=== PATIENT | female | born 1955 | race Caucasian/White ===

== ENCOUNTER 2021-07-26 01:26 | Day surgery (SDC) | payer MEDICARE, SELFPAY ==
[2021-07-12 08:58] VITALS: BMI 36.6
--- NOTE | 2021-07-26 07:45 | PM.HPGS ---
History of Present Illness History of Present Illness Consent: Risks, benefits, and alternatives have been discussed and questions answered. Patient agrees to proceed with procedure. Chief complaint: neoplasm screening Narrative: Laurita Sheikh is a 66 year old female Referred for colon cancer screening. She has a family history of polyps. Her mother had pancreatic cancer. Review of Systems Review of Systems: All systems reviewed & are unremarkable except as noted in HPI and below PMFSH Family History Family History Sibling Family history of Parkinson's disease Family history of malignant neoplasm of breast Hypertension Family history of malignant neoplasm of breast in first degree relative Mother Family history of pancreatic cancer Hypertension Father Patient's father is Social History Social History Smoking status: Never smoker Alcohol intake: never Substance use type: does not use Living arrangements: with family Spiritual care concerns: No Meds Home Medications and Allergies Home Medications Medication Instructions Recorded Confirmed Type raloxifene 60 mg tablet 60 mg PO DAILY 07/19/19 07/12/21 History ezetimibe 10 mg tablet See Rx Instructions .ROUTE 06/27/21 07/12/21 Rx .COMPLEX #90 tablet Calcium 500 with Vitamin D2 500 mg PO DAILY 07/12/21 07/12/21 History aspirin 81 mg PO DAILY 07/12/21 07/12/21 History cetirizine [Zyrtec] 10 mg PO DAILY 07/12/21 07/12/21 History crisaborole [Eucrisa] 1 applic TOPICAL PRN PRN 07/12/21 07/12/21 History docusate sodium [Colace] 100 mg PO DAILY 07/12/21 07/12/21 History fluticasone propionate [Flonase] 1 spray INTRANASAL DAILY 07/12/21 07/12/21 History wheat dextrin [Benefiber (wheat 1 g PO BID 07/12/21 07/12/21 History dextrin)] Allergies Allergy/AdvReac Type Severity Reaction Status Date / Time No Known Allergies Allergy Mild Verified 07/12/21 08:52 Exam Const: General: alert Orientation/consciousness: patient oriented x3 Resp: Auscultation: clear to auscultation bilaterally Cardio: Rhythm: regular rhythm GI: GI Palp: Yes Soft to palpation and No Tenderness to palpation present (GI) Neuro: General: patient oriented x3 Assessment and Plan Assessment and plan (1) Colon cancer screening: Code(s): Z12.11 - Encounter for screening for malignant neoplasm of colon Status: Acute Assessment and Plan: Colonoscopy with possible biopsy or polypectomy or cautery or injection of substances.
[2021-07-26 09:31] VITALS: BP 123/88; PULSE 88; RESP 18; TEMP 36.4; O2SAT 98
[2021-07-26] MEDS: LACTATED RINGERS 1,000 ML 150 ML IV CONT (09:41)
--- NOTE | 2021-07-26 10:00 | P.PNAN_ITS ---
Anes - Initial Pre Proc Eval Procedure: Operation Date: 07/26/21 10:45 Proposed Procedures p Screening Colonoscopy - Mehul Pelaez MD Date/Time: 07/26/21 10:00 Surgeon: Mehul Pelaez MD Pre Op Diagnosis: neoplasm screening Patient Data Age: 66 Gender: F Height: 1.57 m Weight: 90.4 kg Last Vital Signs Temp 97.5 F L 07/26/21 09:31 Pulse 88 07/26/21 09:31 Resp 18 07/26/21 09:31 BP 123/88 07/26/21 09:31 Pulse Ox 98 07/26/21 09:31 Allergies Allergy/AdvReac Type Severity Reaction Status Date / Time No Known Allergies Allergy Mild Verified 07/12/21 08:52 Home Medications Medication Instructions Recorded Confirmed Type raloxifene 60 mg tablet 60 mg PO DAILY 07/19/19 07/12/21 History ezetimibe 10 mg tablet See Rx Instructions .ROUTE 06/27/21 07/12/21 Rx .COMPLEX #90 tablet Calcium 500 with Vitamin D2 500 mg PO DAILY 07/12/21 07/12/21 History aspirin 81 mg PO DAILY 07/12/21 07/12/21 History cetirizine [Zyrtec] 10 mg PO DAILY 07/12/21 07/12/21 History crisaborole [Eucrisa] 1 applic TOPICAL PRN PRN 07/12/21 07/12/21 History docusate sodium [Colace] 100 mg PO DAILY 07/12/21 07/12/21 History fluticasone propionate [Flonase] 1 spray INTRANASAL DAILY 07/12/21 07/12/21 History wheat dextrin [Benefiber (wheat 1 g PO BID 07/12/21 07/12/21 History dextrin)] Patient hx anesthesia problems: none Family hx anesthesia problems: none Results Review: All pre-operative results and documents have been reviewed as part of the pre-operative evaluation. [facility] Family History Family History (System 01/18/20 @ 09:58 by Erin Nunes) Sibling Family history of Parkinson's disease Family history of malignant neoplasm of breast Hypertension Family history of malignant neoplasm of breast in first degree relative Mother Family history of pancreatic cancer Hypertension Father Patient's father is Social History Social History (System 01/18/20 @ 09:58 by Erin Harding Smoking status: Never smoker Alcohol intake: never Substance use type: does not use Living arrangements: with family Spiritual care concerns: No Anes - Eval Final PreProcedure Day of Procedure 07/26/21 10:00 Patient weight: obese Heart: regular rate and rhythm Lungs: clear to auscultation Airway: Mallampati scale class II Neurological: alert and oriented Last oral intake: >/= 8 hours ASA classification: II Emergent: no Anesthetic plan: proceed Anesthesia type and monitoring: general GIVS and standard monitoring Results Review: All pre-operative results and documents have been reviewed as part of the pre-operative evaluation. Informed Consent: The patient's anesthetic plan and its attendant risks and benefits were discussed with the patient/family/POA. Questions were solicited and answers provided to the satisfaction of the patient/family/POA.
[2021-07-26 10:53] VITALS: BP 107/65; PULSE 77; RESP 15; O2SAT 94
[2021-07-26 11:03] VITALS: BP 123/81; PULSE 76; RESP 20; O2SAT 98
[2021-07-26 11:13] VITALS: BP 118/74; PULSE 68; RESP 14; O2SAT 98
== END 2021-07-26 11:20 | disposition home or self-care (01) ==
PROVIDERS: PCP Family Medicine; Visit Provider Internal Medicine Gastroenterology
PROC: 0DJD8ZZ Inspection of Lower Intestinal Tract, Via Natural or Artificial Opening Endoscopic (ICD-10-PCS; CPT 45378; principal; 2021-07-26 10:45)
DX: Z12.11 Encounter for screening for malignant neoplasm of colon (principal); K57.30 Diverticulosis of large intestine without perforation or abscess without bleeding; Z83.71 Family history of colonic polyps; E66.9 Obesity, unspecified; Z68.36 Body mass index [BMI] 36.0-36.9, adult
CPT/HCPCS: G0105; J2704; J7120